=== PATIENT | male | born 1940 | race Caucasian/White ===

== ENCOUNTER 2018-03-07 21:47 | Observation (INO) ==
[2018-03-07 23:12] VITALS: TEMP 98.7
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
[2018-03-08 00:44] LABS: Baso # (Auto) 0.1 th/mm3 (0.0-0.2); Baso % (Auto) 1.1 % (0.0-2.0); Eos # (Auto) 0.1 th/mm3 (0.0-0.4); Eos % (Auto) 2.1 % (0.0-4.0); Hematocrit 45.2 % (39.0-51.0); Lymph # (Auto) 2.2 th/mm3 (1.0-4.8); Lymph % (Auto) 33.2 % (9.0-44.0); Mean Corpuscular HGB Conc 35.3 % (32.0-36.0); Mean Corpuscular Hemoglobin 32.4 pg (27.0-34.0); Mean Corpuscular Volume 91.9 fL (80.0-100.0); Mean Platelet Volume 8.3 fL (7.0-11.0); Mono # (Auto) 0.4 th/mm3 (0.0-0.9); Mono % (Auto) 6.2 % (0.0-8.0); Neut # (Auto) 3.9 th/mm3 (1.8-7.7); Neut % (Auto) 57.4 % (16.0-70.0); Platelet Count 220 th/mm3 (150-450); Red Blood Count 4.92 mil/mm3 (4.50-5.90); Red Cell Distribution Width 13.4 % (11.6-17.2); White Blood Count 6.7 th/mm3 (4.0-11.0)
[2018-03-08 00:52] LABS: INR 1.1 Ratio
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
[2018-03-08 03:54] LABS: Alanine Aminotransferase 36 U/L (12-78); Albumin 3.5 g/dL (3.4-5.0); Anion Gap 6 meq/L (5-15); Aspartate Aminotransferase 27 U/L (15-37); Blood Urea Nitrogen 19 mg/dL (7-18); Calcium 8.9 mg/dL (8.5-10.1); Carbon Dioxide 30.5 meq/L (21.0-32.0); Chloride 104 meq/L (98-107); Glomerular Filtration Rate 59 mL/min (>89); Glucose,Random 198 mg/dL (74-106); Potassium 3.3 meq/L (3.5-5.1); Sodium 140 meq/L (136-145)
[2018-03-08 03:56] LABS: Alkaline Phosphatase 145 U/L (45-117); Total Protein 7.3 g/dL (6.4-8.2)
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
[2018-03-08] MEDS ORDERED: Dextrose 50% in Water 50 ML Vial IV.PUSH PRN (06:52)
[2018-03-08] MEDS ORDERED: Acetaminophen 325 MG Tablet PO PRN (06:57)
[2018-03-08] MEDS ORDERED: Insulin NovoLIN Regular Correctional Sugar Inj SQ SCH (08:00)
[2018-03-08 08:40] VITALS: BP 142/79; PULSE 75; RESP 17; O2SAT 100
[2018-03-08] MEDS ORDERED: Docusate Sodium 100 MG Capsule PO SCH (09:00)
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
[2018-03-09] MEDS ORDERED: Chlorhexidine Gluconate 2% 1 Pack (2 Cloths) TOPICAL SCH (04:00)
[2018-03-09] MEDS ORDERED: Chlorhexidine Gluconate 2% 1 Pack (2 Cloths) TOPICAL PRN (04:00)
== END 2018-03-08 10:07 | disposition home or self-care (01) ==
LOC: NEDA 21:47 → NEPE 21:47 → NEDA 03-08 08:40 → N06 03-08 09:00
PROVIDERS: ADMIT Surgery; ATTEND Surgery
CPT/HCPCS: 71250; 72141; 74176; 80053; 85025; 85610; 86850; 86900; 86901; 97163; 99285; G0378; G8987; G8988